=== PATIENT | female | born 2000 | race Caucasian/White ===

== ENCOUNTER 2018-01-22 06:19 | Inpatient (IN) | payer OTHER ==
[~2018-01-22 06:19] MED LIST: ACETAMINOPHEN 500 MG TAB PO PRN; BUTORPHANOL 1 MG/ML INJ IV PRN; DIPHENHYDRAMINE 50 MG/ML VIAL IV PRN; METOCLOPRAMIDE 10 MG/2mL INJ IV PRN; ONDANSETRON 4 MG/2 ML VIAL IV PRN; PENICILLIN 5 MU in NA CHLORIDE 0.9% 100 ML IV ONE; Ringers Lactate 1,000 ML IV PRN; Ringers Lactate 1,000 ML IV SCH
[2018-01-22] MEDS ORDERED: PENICILLIN G POT 5 MU/100 ML BAG IV ONE (06:40)
[2018-01-22 06:46] LABS: RPR Titer ND
[2018-01-22 06:51] LABS: Urine Appearance CLOUDY; Urine Bilirubin NEGATIVE (NEG); Urine Blood NEGATIVE (NEG); Urine Color YELLOW; Urine Glucose NEGATIVE (NEG); Urine Protein NEGATIVE (NEG)
[2018-01-22 06:54] LABS: Absolute Lymphocytes (CBC) 1.7 K/uL (0.7-4.9); Absolute Monocytes 0.6 K/uL (0.1-1.3); Basophils % 0.3 % (0-1.3); Eosinophils % 1.3 % (0-4.4); Hematocrit 34.9 % (36.0-45.0); Lymphocytes % 19.8 % (15.3-44.8); MCH 29.4 pg (27.0-35.0); MCV 86.8 fL (80-100); MPV 10.5 fL (7.6-11.3); Monocytes % 7.7 % (3.3-12.3); RBC Red Blood Cell Count 4.02 M/uL (3.86-4.86)
[2018-01-22 06:58] VITALS: BMI 30.9
[2018-01-22 07:20] LABS: BUN Blood Urea Nitrogen 9 mg/dL (6-20); Bicarbonate 20 mEq/L (21-31); Glucose Level 113 mg/dL (65-120); Potassium 3.6 mEq/L (3.6-5.0); Sodium Level 135 mEq/L (135-145)
[2018-01-22] MEDS ORDERED: OXYTOCIN/LR 20 UNIT/1,000 ML BAG IV SCH (08:00)
[2018-01-22 08:35] LABS: Urine Microscopic Reflex ORDER UMIC
[2018-01-22 09:59] LABS: Urine Bacteria >50 /HPF (<20); Urine Culture Reflex Order REFLEXED; Urine RBC <5 /HPF (NONE SEEN)
[2018-01-22] MEDS ORDERED: PENICILLIN 2.5 MU in NA CHLORIDE 0.9% 100 ML IV SCH ×2 (10:00→10:45)
--- NOTE | 2018-01-22 11:01 | P.HP ---
Certification for Inpatient Patient admitted to: Inpatient With expected LOS: >2 Midnights Patient will require the following post-hospital care: None Practitioner: I am a practitioner with admitting privileges, knowledge of patient current condition, hospital course, and medical plan of care. Services: Services provided to patient in accordance with Admission requirements found in Title 42 Section 412.3 of the Code of Federal Regulations Patient History Date of Service: 01/23/18 Reason for admission: IOL History of Present Illness: 17 y.o. G1 at 40w5d by 22 week U/S consistent with unsure LMP, presents for IOL. c/b late care starting at 19 weeks and intermediate NIPT x2. She was seen by MFM for targeted U/S and repeat testing which showed a negative progenity result. MSAFP was also negative for NTD. She was followed by MFM until 33 weeks for growth U/S assessments. She is Rh negative and other labs were otherwise WNL. AMLU: 01/17/2018. GBS+ status. Allergies No Known Allergies Allergy (Unverified 10/09/17 09:56) Home Medications: Vit/Iron Fumarate/FA [ Tablet] tab.sr.24h .ROUTE DAILY - Past Medical/Surgical History Has patient received pneumonia vaccine in the past: No Diabetic: No Past Medical History: Patient denies medical history Past Surgical History: Patient denies surgical history - Social History Smoking Status: Never smoker Alcohol use: No CD- Drugs: No Caffeine use: No Place of Residence: Home Review of Systems 10-point ROS is otherwise unremarkable Physical Examination - Physical Exam General: Alert, In no apparent distress, Oriented x3 HEENT: Atraumatic, Normocephalic Respiratory: Other (Normal effort) Cardiovascular: Normal pulses Musculoskeletal: No swelling Integumentary: No rashes, No breakdown Neurological: Normal speech, Normal strength at 5/5 x4 extr - Studies Laboratory Data (last 24 hrs) 01/22/18 06:30: Sodium 135, Potassium 3.6, BUN 9, Creatinine 0.67, Glucose 113 01/22/18 06:30: WBC 8.4, Hgb 11.8 L, Hct 34.9 L, Plt Count 140 L Female Exam - Female Pelvic Vagina: Normal Cervix: Dilation (2-3), Effacement (50), station (-2), Other (Midposition , medium) Uterus: Non-tender, Soft, Gravid - Obstetrics heart rate tracing: Category 1 Contractions: Frequency (Irregular) Amniotic membrane: Intact Assessment and Plan - Problems (Diagnosis) (1) Post term over 40 weeks Onset Date: 01/23/18 Current Visit: Yes Status: Acute Plan: Admitted for IOL. Will start with pitocin. Place on continuous monitoring. Pt declines epidural for pain control. (2) Rh negative state in antepartum period Onset Date: 01/23/18 Current Visit: Yes Status: Acute Plan: Rhogam to be given pp. (3) anomaly suspected but not found Onset Date: 01/23/18 Current Visit: Yes Status: Acute Plan: Pt seen by MFM. Repeat testing was negative. She was followed until ~33 weeks without additional abnormal findings per reports. (4) GBS (group B Streptococcus carrier), +RV culture, currently Onset Date: 01/23/18 Current Visit: Yes Status: Acute Plan: GBS prophylaxis per protocol. - Advance Directives Does patient have a Living Will: No Does patient have a Durable POA for Healthcare: No
[2018-01-22] MEDS ORDERED: LIDOCAINE 2% W/EPI 1:200,000 MPF 20 ML VIAL IM ONE (16:49)
--- NOTE | 2018-01-22 18:22 | P.OP ---
Preoperative diagnosis: IOL, Full term Postoperative diagnosis: Same Primary procedure: VAVD Secondary procedure: Right mediolateral episiotomy Anesthesia: None Estimated blood loss: 350 cc Specimen: Placenta Findings: See operative report Operative Technique: FINDINGS: Female fetus in TAYLOR position, APGARS of 8/9 at 1 and 5 minutes respectively, weight of 8 lb 7 oz, Clear amniotic fluid. Normal appearing placenta. Right medial lateral episiotomy. Stage I: 6h 10 min; Stage II: 53 min. HISTORY OF PRESENT ILLNESS: The patient is a 17-year-old female who is a G1 at 40w5d who was admitted for an elective induction of labor. She had adequate care and was complicated by [facility] care for indeterminate NIPT, Rh negative, and GBS+ status. Labs were normal and she had otherwise routine care. On admission, she was noted to be 2-3 cm. She denied complaints and noted positive movement. PROCEDURE DETAILS: The patient was admitted to Labor and Delivery for induction , which was done with pitocin. She declined an epidural. AROM was done, with clear fluid noted. Labor progressed normally. She was pushing effectively without significant descent. Once the scalp was visible spontaneously, there was notable tightness. Local was injected and a right medial lateral episiotomy was done. She continued to push with some difficulty due to pain. There were some episodes of decreased heart tones. Use of vacuum extractor was discussed and patient agreed. With the next contraction, vacuum was applied per regroover's instructions. Descent was noted. Vacuum was applied once again and with the next contraction, the head delivered. She usng a vacuum assisted vaginal delivery of a live born female with clear fluid at 17:53. Next, the shoulders and body followed without difficulty. Bulb suctioning was done. The was placed on the patient's abdomen for skin to skin contact. The cord was clamped and cut. Findings as stated above. There was no depression. Infant was crying, vigorous, and moving all extremities. Spontaneous delivery of an intact placenta with a three-vessel cord was noted at 17:57. Inspection of the perineum revealed mild extension of the episiotomy. It was repaired using 2-0 vicryl in the usual fashion. On vaginal exam, there were no noted cervical or vaginal sidewall lacerations. Patient tolerated procedure well and there were no complications. Estimated blood loss was ~300 cc. Mother and are in recovery doing well at this time. Complications: None Fluids & blood products: mIVF Transferred to: Recovery Room Condition: Good
[2018-01-22] MEDS ORDERED: CODEINE 30MG/APAP 300MG TAB PO PRN (18:24)
[2018-01-22] MEDS ORDERED: ONDANSETRON 4 MG (ODT) TAB PO PRN (18:24)
[2018-01-22] MEDS ORDERED: ZOLPIDEM TARTRATE 5 MG TABLET PO PRN (18:24)
[2018-01-22] MEDS ORDERED: BISACODYL 10 MG RECTAL SUPP RECT PRN (18:24)
[2018-01-22] MEDS ORDERED: METOCLOPRAMIDE 5 MG TAB PO PRN (18:24)
[2018-01-22] MEDS ORDERED: DIPHENHYDRAMINE 25 MG TAB/CAP PO PRN (18:24)
[2018-01-22] MEDS ORDERED: DOCUSATE NA/SENNA CONC 1 TAB PO PRN (18:24)
[2018-01-22] MEDS ORDERED: IBUPROFEN 200 MG TAB PO PRN (18:24)
[2018-01-22] MEDS ORDERED: Rho(D) IG (HUMAN) 300 MCG SYR IM PRN (18:55)
[2018-01-22] MEDS ORDERED: CEFTRIAXONE/SWI 1gm 1 GM/10 ML SYR IVP ONE (19:00)
[2018-01-22] MEDS ORDERED: NA CHLORIDE 0.9% 500 ML IV SCH (19:00)
[2018-01-22] MEDS ORDERED: METHYLERGONOVINE 0.2MG/ML AMP IM ONE (19:05)
[2018-01-23 00:38] LABS: RPR (Rapid Plasma Reagin) NON-REACT (NON-REACT)
[2018-01-23 05:06] LABS: Absolute Lymphocytes (CBC) 1.3 K/uL (0.7-4.9); Absolute Monocytes 1.1 K/uL (0.1-1.3); Absolute Neutrophil 12.4 K/uL (1.8-8.0); Basophils % 0.2 % (0-1.3); Hematocrit 31.2 % (36.0-45.0); Lymphocytes % 8.8 % (15.3-44.8); MCH 29.3 pg (27.0-35.0); MCV 86.6 fL (80-100); Monocytes % 7.6 % (3.3-12.3); RBC Red Blood Cell Count 3.61 M/uL (3.86-4.86)
--- NOTE | 2018-01-23 12:56 | P.DS ---
Admission Date: 01/22/18 Discharge Date: 01/24/18 Disposition: ROUTINE DISCHARGE Comment: Rounding with discharge summary Discharge Condition: GOOD Reason for Admission: IOL - Problems (1) Rh negative state in antepartum period Onset Date: 01/23/18 Status: Chronic Brief History of Present Illness: 17 y.o. G1 at 40w5d by 22 week U/S consistent with unsure LMP, presents for IOL. c/b late care starting at 19 weeks and intermediate NIPT x2. She was seen by [facility] for targeted U/S and repeat testing which showed a negative progenity result. MSAFP was also negative for NTD. She was followed by M until 33 weeks for growth U/S assessments. She is Rh negative and other labs were otherwise WNL. MALU: 01/17/2018. GBS+ status. Hospital Course: Pt was admitted for IOL which was done with pitocin. She progressed normally and did not have an epidural for pain control. Delivery was assisted by Kiwi vaccuum. It was otherwise uncomplicated. Her course has been uncomplicated. She is trying to breastfeed. Pain is controlled and lochea described like menses. She is stable for d/c home on PPD #1. Vital Signs/Physical Exam: Temp Pulse Resp BP Pulse Ox 98.0 F 89 20 101/41 L 01/23/18 07:21 01/23/18 07:21 01/23/18 07:21 01/23/18 07:21 General: Alert, In no apparent distress, Oriented x3 Respiratory: Other (Normal effort) Cardiovascular: Normal pulses Gastrointestinal: Soft and benign, Non-distended, No tenderness, Other (Uterus firm and below umbilicus) Musculoskeletal: No swelling, No erythema, No tenderness Integumentary: No rashes, No breakdown Neurological: Normal speech, Normal strength at 5/5 x4 extr Laboratory Data at Discharge: WBC 14.8 K/uL (4.3-10.9) H D 01/23/18 04:40 Hgb 10.6 g/dL (12.0-15.0) L 01/23/18 04:40 Hct 31.2 % (36.0-45.0) L 01/23/18 04:40 Plt Count 141 K/uL (152-406) L 01/23/18 04:40 Sodium 135 mEq/L (135-145) 01/22/18 06:30 Potassium 3.6 mEq/L (3.6-5.0) 01/22/18 06:30 BUN 9 mg/dL (6-20) 01/22/18 06:30 Creatinine 0.67 mg/dL (0.44-1.00) 01/22/18 06:30 Glucose 113 mg/dL (65-120) 01/22/18 06:30 Home Medications: Vit/Iron Fumarate/FA [ Tablet] tab.sr.24h .ROUTE DAILY Codeine/APAP [Tylenol #3*] 1 tab PO Q4H PRN #10 tab 01/23/18 Ibuprofen 800 mg PO TIDP PRN #30 tablet 01/23/18 New Medications: Codeine/APAP [Tylenol #3*] 1 tab PO Q4H PRN #10 tab PRN Reason: Pain Scale 8-10 (Severe) Ibuprofen 800 mg PO TIDP PRN #30 tablet PRN Reason: Abdominal Cramps Patient Discharge Instructions: Complete pelvic rest until 6 weeks . Notify doctor of bleeding or sings on infection. See physician in 6 weeks for exam. Diet: Regular Activity: Ad justin Followup: Josy Han MD [ACTIVE - CAN ADMIT] - (Follow up with Dr. Han. Call and make appointment)
[2018-01-23 16:05] VITALS: BP 111/55; TEMP 97.2
[2018-01-24 03:20] LABS: HBsAG Nonreactive (Nonreactive)
== END 2018-01-23 20:55 | disposition home or self-care (01) | DRG 775 ==
LOC: 2ND-WC 06:19
PROVIDERS: ADMIT Obstetrics & Gynecology; ATTEND Obstetrics & Gynecology
PROC: 10D07Z6 Extraction of Products of Conception, Vacuum, Via Natural or Artificial Opening (ICD-10-PCS; principal; 2018-01-22)
PROC: 0W8NXZZ Division of Female Perineum, External Approach (ICD-10-PCS; 2018-01-22)
PROC: 3E033VJ Introduction of Other Hormone into Peripheral Vein, Percutaneous Approach (ICD-10-PCS; 2018-01-22)
PROC: 10907ZC Drainage of Amniotic Fluid, Therapeutic from Products of Conception, Via Natural or Artificial Opening (ICD-10-PCS; 2018-01-22)
PROC: 3E0234Z Introduction of Serum, Toxoid and Vaccine into Muscle, Percutaneous Approach (ICD-10-PCS; 2018-01-23)
DX: O76 Abnormality in fetal heart rate and rhythm complicating labor and delivery (principal); O36.0930 Maternal care for other rhesus isoimmunization, third trimester, not applicable or unspecified; O32.4XX0 Maternal care for high head at term, not applicable or unspecified; O99.824 Streptococcus B carrier state complicating childbirth; Z3A.40 40 weeks gestation of pregnancy; Z37.0 Single live birth
CPT/HCPCS: 36415; 80048; 81003; 81015; 85025; 85461; 86592; 86850; 86900; 86901; 87086; 87088; 87340; 88307; J0595; J0696; J2210; J2405; J2590; J2765; J2790